=== PATIENT | female | born 1990 | race Caucasian/White ===

== ENCOUNTER 2016-04-12 00:36 | Emergency (ER) | payer SELFPAY ==
[~2016-04-12] VITALS: Ht 172.7 cm; Wt 93.0 kg
[~2016-04-12 00:36] MED LIST: ALBU8.5H5 IH; ETON1VAG5; HYDR473S47 PO; IBUP-1542 PO; IBUP800T25 PO; ONDA4TAB35 PO; PHEN177S43 MT; RANI150T9 PO
[2016-04-12 00:40] VITALS: Ht 172.7 cm; Wt 93.0 kg
[2016-04-12 03:48] LABS: URINE BLOOD (Dip) POC Negative (NEGATIVE)
[2016-04-12] MEDS ORDERED: ACETAMINOPHEN 500 MG TAB PO STA (03:59)
[2016-04-12] MEDS ORDERED: IBUPROFEN 600 MG TAB PO ONE (04:00)
[2016-04-12 05:01] LABS: ADD UMIC NO; URINE BILIRUBIN (Dip) NEGATIVE (NEGATIVE); URINE BLOOD (Dip) NEGATIVE (NEGATIVE); URINE COLOR LT. YELLOW (YELLOW); URINE GLUCOSE (Dip) NEGATIVE (NEGATIVE); URINE KETONES (Dip) TRACE (NEGATIVE); URINE LEUKOCYTE ESTERASE (Dip) NEGATIVE (NEGATIVE); URINE NITRITE (Dip) NEGATIVE (NEGATIVE); URINE TOTAL PROTEIN (Dip) NEGATIVE (NEGATIVE); URINE UROBILINOGEN (Dip) 0.2 E.U./dL (0.1-1.0)
[2016-04-12] MEDS ORDERED: IBUP-1542 PO (05:19)
[2016-04-12] MEDS ORDERED: OSLT75C PO (05:19)
[2016-04-12] MEDS ORDERED: TYL500 PO (05:19)
--- NOTE | 2016-04-12 05:25 | ERD ---
ER Documentation Chief Complaint Date/Time DATE: 04/12/16 TIME: 05:23 Chief Complaint fever, reed and nausea, chills since 2030 HPI This is a 25-year-old female presents to the ER with a fever that started 8:30 PM today. Patient is also complaining of a headache, nausea and dizziness. Patient has had a sore throat for the last week and she also has a stuffy nose. Cough is dry and constant. Headache is described as pressure-like. Patient denies any neck pain or neck stiffness. She denies any urinary frequency or dysuria. ROS 12 point review of systems was done, all negative except per HPI. Medications Home Meds Active Scripts Acetaminophen* (Tylenol*) 500 Mg Tab, 500 MG PO Q4H Y for MILD PAIN LEVEL 1-3 for 3 Days, TAB Prov:VAHE MARTINEZ 04/12/16 Ibuprofen* (Motrin*) 600 Mg Tab, 600 MG PO Q6, #30 TAB Prov:VAHE MARTINEZ 04/12/16 Oseltamivir Phosphate* (Tamiflu*) 75 Mg Capsule, 75 MG PO BID for 5 Days, CAP Prov:VAHE MARTINEZ 04/12/16 Ibuprofen* (Motrin*) 600 Mg Tab, 600 MG PO Q6, #20 TAB Prov:TALIA DAVILA MD 10/11/15 Phenol* (Chloraseptic* [place]) 177 Ml [place].pump, 2 SPRAY MT Q2H Y for SORE THROAT for 7 Days, BOTTLE Prov:DUONG CROUCH MD 12/19/14 Ibuprofen* (Ibuprofen*) 800 Mg Tablet, 800 MG PO Q6H Y for FEVER, #30 TAB Prov:DUONG CROUCH MD 12/19/14 Hydrocodone/Homatropine Mbr* (Hycodan* Liq) 5 Ml Syrup, 5 ML PO Q4H Y for COUGH for 7 Days, ML Prov:DUONG CROUCH MD 12/19/14 Albuterol Sulfate* (Albuterol Sulfate* HFA) 8.5 Gm Hfa.aer.ad, 2 PUFF IH Q4H Y for WHEEZING AND SOB for 7 Days, EA Prov:DUONG CROUCH MD 12/19/14 Ondansetron Hcl* (Zofran* ODT) 4 mg -ODT Tab.disper, 4 MG PO Q6 Y for NAUSEA AND /OR VOMITING, #10 TAB Prov:VAHE MARTINEZ 10/10/14 Ranitidine Hcl* (Zantac*) 150 Mg Tablet, 150 MG PO BID Y for acid for 30 Days, TAB 0 Refills Prov:VAHE MARTINEZ 10/10/14 Reported Medications Etonogestrel-Ethinyl Estradiol (Nuvaring Vaginal Ring) 1 Vag.ring Vag.ring 10/10/14 Allergies Allergies: Coded Allergies: No Known Allergy (Unverified , 10/10/14) PMhx/Soc History of Surgery: Yes (jaw surgery 2011) Anesthesia Reaction: No Hx Neurological Disorder: No Hx Respiratory Disorders: No Hx Cardiac Disorders: No Hx Psychiatric Problems: Yes (panic attacks) Hx Miscellaneous Medical Probl: No Hx Alcohol Use: Yes (socially) Hx Substance Use: No Hx Tobacco Use: No Smoking Status: Never smoker Physical Exam Vitals Vital Signs Date Time Temp Pulse Resp B/P Pulse Ox O2 Delivery O2 Flow Rate FiO2 04/12/16 00:40 102.6 133 20 127/83 98 Physical Exam GENERAL: The patient is well-developed, well-nourished, in no acute distress. NECK: Cervical spine is non tender with no step off. Supple, no nuchal rigidity. HEENT: Atraumatic. Pupils equal, round and reactive to light. Extraocular muscles are grossly intact. Conjunctivae pink, no discharge. Bilateral tympanic membranes are clear with no evidence of erythema, effusion or dulling of the light reflex. Tonsilar erythema with no exudates or uvular deviation. Clear rhinorrhea. RESPIRATORY: Clear to auscultation bilaterally. There are no rales, wheezes or rhonchi. HEART: Regular rate and rhythm. No murmurs, clicks, rubs or gallops. EXTREMITIES: No clubbing or cyanosis. Full range of motion. Grossly neurovascularly intact. NEUROLOGIC: Alert and oriented. Cranial nerves II through XII are intact. SKIN: There is no rash. The skin is warm and dry. Results 24 hrs Laboratory Tests Test 04/12/16 03:48 04/12/16 04:15 Bedside Urine Blood Negative Bedside Urine Glucose (UA) Negative Bedside Urine Ketones (LAB) Negative Bedside Urine Leukocyte Esterase (L Negative Bedside Urine Nitrite (LAB) Negative Bedside Urine Protein (LAB) Trace Bedside Urine pH (LAB) 8.5 Urine Bilirubin NEGATIVE Urine Clarity CLEAR Urine Color LT. YELLOW Urine Glucose NEGATIVE% Urine Hemoglobin NEGATIVE Urine Ketones TRACE Urine Leukocyte Esterase NEGATIVE Urine Nitrite NEGATIVE Urine Specific [place] 1.015 Urine Total Protein NEGATIVE Urine Urobilinogen 0.2 E.U./dL Urine pH 7.0 Current Medications Medications (Trade) Dose Ordered Sig/Kelsey Route PRN Reason Start Time Stop Time Status Last Admin Dose Admin Acetaminophen (Tylenol Tab) 1,000 mg ONCE STAT PO 04/12/16 03:59 04/12/16 04:01 DC 04/12/16 04:20 Ibuprofen (Motrin) 600 mg ONCE ONCE PO 04/12/16 04:00 04/12/16 04:01 DC 04/12/16 04:20 Procedures/MDM This is a 25-year-old female presents to the ER with multiple complaints. At this time patient has a lot of upper respiratory infection symptoms which may be viral in etiology. Influenza swab was negative however patient does have flulike symptoms. Patient's fever was treated here in the ER and her vital signs improved. Patient will be sent home with Tamiflu, ibuprofen and Tylenol. There is no evidence of urinary tract infection and patient's physical examination was benign. Patient did not have any focal neurological deficits. I doubt meningitis or sepsis. Patient needs to follow-up with her primary care doctor within 1-2 days or return to ER sooner if symptoms worsen. Plan was discussed with the patient she understands and agrees with plan. Departure Diagnosis: Primary Impression: Influenza-like symptoms Condition: Stable Patient Instructions: Adult Self-Care for Colds Additional Instructions: Call your primary care doctor TOMORROW for an appointment during the next 1-2 days.See the doctor sooner or return here if your condition worsens before your appointment time. VAHE MARTINEZ Apr 12, 2016 05:25
[2016-04-12 05:27] VITALS: PULSE 110; TEMP 98.7
== END 2016-04-12 05:30 | disposition home or self-care (01) ==
LOC: FTE 00:36
DX: R50.9 Fever, unspecified (principal); R51 Headache; R42 Dizziness and giddiness; J02.9 Acute pharyngitis, unspecified; R11.0 Nausea; R05 Cough
CPT/HCPCS: 81003; 87400; 99283

== ENCOUNTER 2017-04-21 01:13 | Emergency (ER) | END 2017-04-21 05:28 | disposition home or self-care (01) ==

== ENCOUNTER 2017-06-25 18:23 | Emergency (ER) | END 2017-06-25 23:44 | disposition home or self-care (01) ==

== ENCOUNTER 2018-09-04 15:11 | Emergency (ER) | payer BC, OTHER ==
[~2018-09-04] VITALS: Ht 172.7 cm; Wt 88.0 kg
[~2018-09-04 15:11] MED LIST changes: +BENZ-6 PO; +CETI10CA PO; +DOCU-144 PO; +IBUP-1544 PO; -IBUP800T25 PO; +NASO17 NASAL; +OSEL75CA23 PO; +RANI150T35 PO; -RANI150T9 PO; +TYL500 PO
[2018-09-04 15:13] VITALS: BP 139/58; PULSE 87; RESP 18; Ht 172.7 cm; Wt 88.0 kg
[2018-09-04] MEDS ORDERED: MUPI22OI2 TOP (16:12)
[2018-09-04] MEDS ORDERED: ACYC800T5 PO (16:12)
--- NOTE | 2018-09-04 16:19 | ERD ---
ER Documentation Chief Complaint Chief Complaint rt mid back rash HPI This is a 27-year-old female patient who presents to the emergency room with complaint of rash to who right flank x1 week. 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 Otherwise well-appearing, no fever, no abdominal pain, no back pain. ROS All systems reviewed and are negative except as per history of present illness. Medications Home Meds Active Scripts Acyclovir* (Zovirax*) 800 Mg Tablet, 800 MG PO 5 TIMES DAILY for 7 Days, TAB Prov:MARTHA WOODS NP 09/04/18 Mupirocin* (Bactroban*) 2% -22 Gram Oint...g., 1 APPLIC TOP BID for 14 Days, #22 GM Prov:MARTHA WOODS NP 09/04/18 Docusate Sodium* (Colace*) 100 Mg Capsule, 100 MG PO BID, #30 CAP Prov:LUDIN PENA PA-C 06/25/17 Ranitidine Hcl* (Zantac*) 150 Mg Tablet, 150 MG PO BID PRN for EPIGASTRIC PAIN, #30 TAB Prov:LUDIN PNEA PA-C 06/25/17 Cetirizine Hcl* (Zyrtec*) 10 Mg Capsule, 10 MG PO DAILY, #10 TAB.CHEW Prov:SINDHU MUSTAFA PA-C 04/21/17 Mometasone Furoate* (Nasonex*) 50 Mcg/[place] - 17 Gm [place].pump, 1 SPRAY NASAL BID, #1 BOTTLE IN EACH NOSTRIL Prov:SINDHU MUSTAFA PA-C 04/21/17 Ibuprofen* (Motrin*) 600 Mg Tab, 600 MG PO Q6, #30 TAB Prov:SINDHU MUSTAFA PA-C 04/21/17 Benzonatate* (Tessalon Perle*) 100 Mg Capsule, 100 MG PO Q8H PRN for COUGH, #30 CAP Prov:SINDHU MUSTAFA PA-C 04/21/17 Acetaminophen* (Tylenol*) 500 Mg Tab, 500 MG PO Q4H PRN for MILD PAIN LEVEL 1-3 for 3 Days, TAB Prov:VAHE MARTINEZ 04/12/16 Ibuprofen* (Motrin*) 600 Mg Tab, 600 MG PO Q6, #30 TAB Prov:VAHE MARTINEZ 04/12/16 Oseltamivir Phosphate* (Tamiflu*) 75 Mg Capsule, 75 MG PO BID for 5 Days, CAP Prov:VAHE MARTINEZ 04/12/16 Ibuprofen* (Motrin*) 600 Mg Tab, 600 MG PO Q6, #20 TAB Prov:TALIA DAVILA MD 10/11/15 Phenol* (Chloraseptic* [place]) 177 Ml [place].pump, 2 SPRAY MT Q2H PRN for SORE THROAT for 7 Days, BOTTLE Prov:DUONG CROUCH MD 12/19/14 Ibuprofen* (Ibuprofen*) 800 Mg Tablet, 800 MG PO Q6H PRN for FEVER, #30 TAB Prov:DUONG CROUCH MD 12/19/14 Hydrocodone/Homatropine Mbr* (Hycodan* Liq) 5 Ml Syrup, 5 ML PO Q4H PRN for COUGH for 7 Days, ML Prov:DUONG CROUCH MD 12/19/14 Albuterol Sulfate* (Albuterol Sulfate* HFA) 8.5 Gm Hfa.aer.ad, 2 PUFF IH Q4H PRN for WHEEZING AND SOB for 7 Days, EA Prov:DUONG CROUCH MD 12/19/14 Ondansetron Hcl* (Zofran* ODT) 4 mg -ODT Tab.disper, 4 MG PO Q6 PRN for NAUSEA AND/OR VOMITING, #10 TAB Prov:VAHE MARTINEZ 10/10/14 Ranitidine Hcl* (Zantac*) 150 Mg Tablet, 150 MG PO BID PRN for acid for 30 Days, TAB 0 Refills Prov:VAHE MARTINEZ 10/10/14 Reported Medications Etonogestrel-Ethinyl Estradiol (Nuvaring Vaginal Ring) 1 Vag.ring Vag.ring 10/10/14 Allergies Allergies: Coded Allergies: No Known Allergy (Unverified , 04/21/17) PMhx/Soc History of Surgery: Yes (jaw surgery 2011) Anesthesia Reaction: No Hx Neurological Disorder: No Hx Respiratory Disorders: No Hx Cardiac Disorders: No Hx Psychiatric Problems: Yes (panic attacks) Hx Miscellaneous Medical Probl: No Hx Alcohol Use: Yes (socially) Hx Substance Use: No Hx Tobacco Use: No Smoking Status: Never smoker FmHx Family History: No diabetes, No coronary disease, No other Physical Exam Vitals Vital Signs Date Temp Pulse Resp B/P (MAP) Pulse Ox O2 O2 Flow FiO2 Time Delivery Rate 09/04/18 98.1 87 18 139/58 99 15:13 (85) Physical Exam Const: No acute distress Head: Atraumatic Eyes: Normal Conjunctiva ENT: Normal External Ears, Nose and Mouth. Neck: Full range of motion. No meningismus. Resp: Clear to auscultation bilaterally Cardio: Regular rate and rhythm, no murmurs Abd: Soft, non tender, non distended. Normal bowel sounds Skin: vesicular cluster to right flank, no erythema, +pruritic, no pain, no swelling. No other rash. Back: No midline or flank tenderness Ext: No cyanosis, or edema Neur: Awake and alert Psych: Normal Mood and Affect Procedures/MDM This is a 27-year-old female patient who presents to the emergency room with complaint of rash to who right flank x1 week. This patients soft tissue infection appears to be appropriate for outpatient treatment with close follow-up for reevaluation by a clinician within 24-48 hours. A serious, rapidly progressive infectious process is unlikely based upon the patients presentation and appearance of the infection. Antibiotic treatment has been prescribed. Most likely this patient has a rash due to impetigo, however vesicular rash does appear to be on dermatome and similar to a shingles lesion. Patient has been prescribed Bactroban for topical application and instructed to only initiate acyclovir if rash spreads, becomes burning pain, worsens. Patient verbalized understanding of care of wound and use of treatments. The patient has been instructed on signs and symptoms of acute progression of infection and to return immediately if any of these occur. Departure Diagnosis: Primary Impression: Rash Condition: Stable Patient Instructions: Shingles (Herpes Zoster), Impetigo Referrals: SONDRA KNOTT MD Additional Instructions: Thank you very much for allowing us to participate in your care. Your health and safety is our top priority at [facility]. Call your primary care doctor TOMORROW for an appointment during the next 2-4 days and bring all the information and medications prescribed. Have prescriptions filled and follow precisely the directions on the label. If the symptoms get worse and your provider is unavailable, return to the Emergency Department immediately. MARTHA WOODS NP September 04, 2018 16:19
== END 2018-09-04 16:39 | disposition home or self-care (01) ==
LOC: FTE 15:11
DX: R21 Rash and other nonspecific skin eruption (principal)
CPT/HCPCS: 99283